=== PATIENT | male | born 1980 | race Hispanic/Latino ===

== ENCOUNTER 2025-06-27 11:38 | Emergency (ER) | payer SELFPAY ==
[~2025-06-27] VITALS: Ht 165.1 cm; Wt 149.7 kg
[2025-06-27 11:38] VITALS: BP 183/102; PULSE 84; RESP 18; TEMP 97.8; O2SAT 96
[2025-06-27] MEDS ORDERED: TORADOL ONE (12:00)
[2025-06-27] MEDS: TORADOL IM STA (12:14)
[2025-06-27 12:23] VITALS: BP 152/62; PULSE 60; RESP 18; TEMP 97.8; O2SAT 96
== END 2025-06-27 12:35 | disposition home or self-care (01) ==
LOC: ER 11:38
DX: M25.462 Effusion, left knee (principal)
CPT/HCPCS: 99283; 29530; 73562; 96372; J1885

== ENCOUNTER → 2025-07-04 | Outpatient (CLI) | payer SELFPAY ==
[2025-07-04 15:55] LABS: BASOPHIL # 0.0 10^3/uL (0.0-0.1); BASOPHIL % 0.4 % (0.2-1.2); EOSINOPHIL # 0.2 10^3/uL (0.0-0.2); EOSINOPHIL % 1.4 % (0.0-5.0); HEMATOCRIT(ML) 47.8 % (37.0-53.0); IG % 0.30 % (0.00-0.50); LYMPHOCYTES # 2.06 10^3/uL1 (1.0-4.8); LYMPHOCYTES % 18.1 % (24.0-44.0); MEAN CORP HGB 32.0 pg (26-34); MEAN CORP HGB CONCENTRATION 32.8 g/dL (33-36.5); MEAN CORP VOLUME 97.4 fL (78-100); MONOCYTES # 1.3 10^3/uL (0.3-0.8); MONOCYTES % 11.1 % (5.0-12.0); NEUTROPHIL # 7.8 10^3/uL (1.8-7.7); NEUTROPHILS % 68.7 % (41.0-85.0); RED BLOOD CELL 4.91 10^6/uL (4.50-5.90); RED CELL DISTRIBUTION WIDTH 13.3 % (11.5-14.5); WHITE BLOOD CELL 11.4 10^3/uL (4.5-11.0)
== END | disposition home or self-care (01) ==
LOC: LAB 15:31
PROVIDERS: ATTEND Orthopaedic Surgery
DX: M25.50 Pain in unspecified joint (principal)
CPT/HCPCS: 36415; 85025; 85651; 86038; 86140; 86431